=== PATIENT | male | born 1975 | race African-American/Black ===

== ENCOUNTER 2022-01-22 08:44 | Emergency (ER) | payer OTHER ==
[2022-01-22 09:20] LABS: Hemoglobin 13.2 g/dL (13.5-17.5); Mean Corpuscular HGB CONC 32.5 g/dL (32.0-36.0); Mean Corpuscular Hemoglobin 30.8 pg (27.0-33.0); Mean Corpuscular Volume 94.6 fl (81.2-95.1); Mean Platelet Volume 8.4 fl (7.4-10.4); Platelet Count 167 10x3/uL (150-450); RBC Distribution Width 13.2 % (11.5-14.5); Red Blood Cell (RBC) Count 4.29 10x6/uL (4.32-5.72); White Blood Cell (WBC) Count 4.9 10x3/uL (3.5-10.5)
[2022-01-22 09:36] LABS: ALT (SGPT) 16 U/L (8-55); AST (SGOT) 20 U/L (5-34); Albumin 3.9 g/dL (3.5-5.0); Alkaline Phosphatase 100 U/L (40-110); Anion Gap 11 mmol/L (10-20); BUN (Urea Nitrogen) 13 mg/dL (8.9-20.6); Bilirubin, Total 1.3 mg/dL (0.2-1.2); Calc. Creatinine Clearance 0 mL/min (70-130); Calcium 8.4 mg/dL (7.8-10.44); Carbon Dioxide 24 mmol/L (22-29); Chloride 101 mmol/L (98-107); Estimated GFR 68; Glucose 132 mg/dL (70-105); Potassium 4.4 mmol/L (3.5-5.1); Protein, Total 7.9 g/dL (6.0-8.3); Sodium 132 mmol/L (136-145)
[2022-01-22 09:37] LABS: MDiff Complete? YES; Manual Diff?? YES
[2022-01-22 09:40] LABS: Band 33 % (5-11); Lymphocytes 9 % (21-51); Metamyelocyte 3 % (0-0); Monocytes 3 % (0-10); Neutrophil 51 % (42-75); Reactive Lymphocytes 1 % (0-10)
[2022-01-22 09:41] LABS: Dohle Bodies SLIGHT; Platelet Morphology Comment Appears Adequate
[2022-01-22 09:42] LABS: Toxic Granulation SLIGHT; Vacuoles SLIGHT
[2022-01-22] MEDS ORDERED: Ketorolac Tromethamine 30 MG/ML VIAL ONE (10:56)
[2022-01-22] MEDS ORDERED: Furosemide 40 MG/4 ML VIAL ONE (10:56)
[2022-01-22 13:53] LABS: Blood Culture - Extra Bottle RECEIVED; Blue RECEIVED; Gold RECEIVED; Green RECEIVED; Lavender RECEIVED; SST 8.5mL RECEIVED
== END 2022-01-22 12:55 | disposition still patient (30) ==
LOC: EEVIPCON 08:44 → CSHERS 08:44
DX: L03.115 Cellulitis of right lower limb (principal); Z20.822 Contact with and (suspected) exposure to COVID-19; I10 Essential (primary) hypertension
CPT/HCPCS: 80053; 83605; 85025; 87040; 96374; 96375; J1885; J1940; J3370; U0003; U0005